=== PATIENT | male | born 1940 | race Caucasian/White ===

== ENCOUNTER 2018-06-01 11:27 | Day surgery (SDC) | payer MEDICARE, BC ==
[~2018-06-01 11:27] MED LIST: Metoclopramide 10 MG/2 ML SDV IV PRN; Sodium Chloride 0.9% 1,000 ML IV SCH
[2018-06-01] MEDS ORDERED: Propofol 1,000 MG/100 ML SDV ONE (13:45)
[2018-06-01 14:22] VITALS: BP 137/81
--- NOTE | 2018-06-01 20:13 | OR ---
DATE OF OPERATION: 06/01/2018 PREOPERATIVE DIAGNOSIS: History of rectal cancer. POSTOPERATIVE DIAGNOSIS: History of rectal cancer. PROCEDURE: Colonoscopy. ANESTHESIA: MAC. ESTIMATED BLOOD LOSS: None. COMPLICATIONS: None. INDICATION FOR THE PROCEDURE: The patient is a 77-year-old male, who over a year ago had a transanal excision of rectal cancer. Apparently, the patient has had 2 sigmoidoscopies and the colonoscopy since then. The patient is here today for a 1 year followup colonoscopy. The patient otherwise denies any change in bowel habits. DESCRIPTION OF PROCEDURE: Informed consent was obtained from the patient. The patient was taken to the operating room, placed on the table in the left lateral decubitus position. Monitored anesthesia care was administered. Digital rectal exam performed and was normal. Colonoscope then advanced through the anus, directed towards the cecum. Cecum was reached and identified by appendiceal orifice as well as ileocecal valve. Colonoscope was then slowly withdrawn. No polyps. No masses. No areas of ischemia or inflammation identified. The patient did have moderate to severe diverticulosis throughout the colon, worse in the sigmoid with both large and small diverticula present. The colonoscope was then slowly withdrawn. Retroflexion performed in the rectum showing no masses or signs of recurrence in the rectum. The colonoscope was then withdrawn. FINDINGS: Moderate to severe diverticulosis throughout colon. RECOMMENDATIONS: Would recommend repeat colonoscopy in 3 years due to personal history of cancer as well as high-fiber diet for the diverticula. MARY /[id number]
== END 2018-06-01 15:00 | disposition home or self-care (01) ==
LOC: LB.SDS 11:27
PROVIDERS: ATTEND Surgery
DX: K57.30 Diverticulosis of large intestine without perforation or abscess without bleeding (principal); Z85.048 Personal history of other malignant neoplasm of rectum, rectosigmoid junction, and anus; Z98.890 Other specified postprocedural states
CPT/HCPCS: J2704; J7030

== ENCOUNTER 2021-07-21 21:04 | Emergency (ER) | payer MEDICARE ==
[2021-07-21] MEDS ORDERED: Ondansetron 4 MG/2 ML SDV IVPUSH ONE (21:43)
[2021-07-21] MEDS: HYDROmorphone 2 MG/ML SDV IVPUSH ONE ×2 (22:16→23:45)
[2021-07-21] MEDS ORDERED: ceFAZolin 1 GM in Sodium Chloride 0.9% 50 ML IV ONE (22:29)
[2021-07-21] MEDS ORDERED: Sodium Chloride 0.9% 1,000 ML IV ONE (22:30)
[2021-07-21 23:53] VITALS: BP 125/83; PULSE 97
== END 2021-07-22 00:46 ==
LOC: LB.ED 21:04
DX: K56.609 Unspecified intestinal obstruction, unspecified as to partial versus complete obstruction (principal); E78.00 Pure hypercholesterolemia, unspecified; I10 Essential (primary) hypertension; K21.9 Gastro-esophageal reflux disease without esophagitis; Z79.899 Other long term (current) drug therapy
CPT/HCPCS: 36415; 74019; 74176; 80053; 83605; 83690; 85025; 87040; 96374; 96375; 99285; J0690; J1170; J2405; J7030; 99284